=== PATIENT | female | born 1995 | race Asian ===

== ENCOUNTER 2018-11-30 12:48 | Emergency (ER) | payer BC ==
[2018-11-30] MEDS ORDERED: Fluorescein Sodium TOPICAL* 1 MG TEST STRIP ONE (13:31)
--- NOTE | 2018-11-30 13:44 | ED ---
Throat Pain/Nasal Congestion - HPI Summary HPI Summary: 23 year old F presents to [facility] accompanied by female roommate with a chief complaint of pain and white spot on right eye since yesterday, 11/30/18. Symptoms aggravated by nothing. Symptoms alleviated by nothing. Patient reports hx corneal ulcer and that current symptoms are similar to then. Patient reports eye pain when looking at certain directions and watering and pain when exposed to bright light. Patient reports wearing contacts but is not wearing them currently. Patient denies change in vision and drainage from eye. Patient denies current medical problems, recent surgeries, or allergies to medications. Patient reports alcohol use occasionally and denies drug use or smoking. Patient is currently in school. - History of Current Complaint Chief Complaint: EDEyeProblem Time Seen by Provider: 11/30/18 13:27 Hx Obtained From: Patient Onset/Duration: Lasting Days - 1, Still Present Severity: Mild - Allergies/Home Medications Allergies/Adverse Reactions: Allergies Allergy/AdvReac Type Severity Reaction Status Date / Time No Known Allergies Allergy Verified 11/30/18 12:55 PMH/Surg Hx/FS Hx/Imm Hx Endocrine/Hematology History: Denies: Hx Diabetes Sensory History: Reports: Hx Contacts or Glasses, Other Sensory Impairments - corneal ulcer on left eye Opthamlomology History: Reports: Hx Contacts or Glasses, Other Sensory Impairments - corneal ulcer on left eye - Surgical History Surgery Procedure, Year, and Place: wisdom teeth removal, 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 Negative: Drainage All Other Systems Reviewed And Are Negative: Yes Physical Exam - Summary Physical Exam Summary: Constitutional: Well-developed, Well-nourished, Alert. (-) Distressed Skin: Warm, Dry HENT: Normocephalic; Atraumatic Eyes: Pinpoint area or fluorescein uptake at 1200 on iris, mild conjunctival injection, no photophobia, Extraocular movements intact Neck: Musculoskeletal ROM normal neck. (-) JVD, (-) Stridor, (-) Tracheal deviation Cardio: Rhythm regular, rate normal, Heart sounds normal; Intact distal pulses; The pedal pulses are 2+ and symmetric. Radial pulses are 2+ and symmetric. (-) Murmur Pulmonary/Chest wall: Effort normal. (-) Respiratory distress, (-) Wheezes, (-) Rales Abd: Soft, (-) tenderness, (-) Distension, (-) Guarding, (-) Rebound Musculoskeletal: (-) Edema Lymph: (-) Cervical adenopathy Neuro: Alert, Oriented x3 Psych: Mood and affect Normal Triage Information Reviewed: Yes Vital Signs On Initial Exam: Initial Vitals Temp Pulse Resp BP Pulse Ox 98.1 F 72 16 122/78 99 11/30/18 12:52 11/30/18 12:52 11/30/18 12:52 11/30/18 12:52 11/30/18 12:52 Vital Signs Reviewed: Yes Diagnostics - Vital Signs Vital Signs Temp Pulse Resp BP Pulse Ox 11/30/18 12:52 98.1 F 72 16 122/78 99 - Laboratory Lab Statement: Any lab studies that have been ordered have been reviewed, and results considered in the medical decision making process. Re-Evaluation - Re-Evaluation First Eval Re-Evaluation Time: 13:48 Comment: Physician discusses consult with patient. EENT Course/Dx - Course Course Of Treatment: Patient is here with a small corneal ulcer on the right. Patient has no vision changes. Patient does wear contacts. Optho was called and recommended moxifloxacin every 3 hours with follow-up on Sunday. Patient's prescription was sent to the pharmacy but pharmacy does not have moxifloxacin so we changed to ofloxacin. - Diagnoses Provider Diagnoses: Corneal ulcer - Provider Notifications Discussed Care Of Patient With: Thong Portillo - ophthalmology Time Discussed With Above Provider: 13:44 Instructed by Provider To: Other - put her on moxifloxacin, have her call him on Sunday to set up an appointment for Sunday Discharge ED - Sign-Out/Discharge Documenting (check all that apply): Patient Departure - discharge Patient Received Moderate/Deep Sedation with Procedure: No - Discharge Plan Condition: Stable Disposition: HOME Prescriptions: Moxifloxacin 0.5% OPHTH(NF) [Vigamox 0.5% OPHTH(NF)] 1 drop RIGHT EYE Q3HR #1 [email or web address] Patient Education Materials: Corneal Ulcer (ED) Referrals: Thong Portillo MD [Medical Doctor] - As Soon As Possible Additional Instructions: Call the process camera operator on Sunday 8:00 AM to set up appointment. Do not wear contacts. Do drops every 3 hrs even through the night and come back to ED for worsening vision, pain, or any other concerning symptoms. - Billing Disposition and Condition Condition: STABLE Disposition: Home - Attestation Statements Document Initiated by Scribe: Yes Documenting Scribe: Mckenzie Ellis Provider For Whom Ilianaibe is Documenting (Include Credential): Dr. Asael Hickey MD Scribe Attestation: Mckenzie Mejia, scribed for Dr. Asael Hickey MD on 11/30/18 at 1420. Scribe Documentation Reviewed: Yes Provider Attestation: The documentation as recorded by the Mckenzie barrientos accurately reflects the service I personally performed and the decisions made by me, Dr. Asael Hickey MD Status of Scribe Document: Viewed
[2018-11-30 14:02] VITALS: BP 111/66
== END 2018-11-30 14:00 | disposition home or self-care (01) ==
LOC: ED 12:48
DX: H16.001 Unspecified corneal ulcer, right eye (principal)
CPT/HCPCS: 99282; A9270-GY